=== PATIENT | female | born 1960 ===

== ENCOUNTER 2025-05-02 06:22 | Day surgery (SDC) | payer BC, SELFPAY ==
[2025-05-02 10:30] LABS: Glucose - Point of Care 107 mg/dl (70-99)
== END 2025-05-02 12:46 | disposition home or self-care (01) ==
LOC: GI 06:22
PROVIDERS: ATTENDING PHYSICIAN Internal Medicine Gastroenterology
DX: Z12.11 Encounter for screening for malignant neoplasm of colon (principal); R19.5 Other fecal abnormalities; K57.30 Diverticulosis of large intestine without perforation or abscess without bleeding; K64.9 Unspecified hemorrhoids; D12.0 Benign neoplasm of cecum
CPT/HCPCS: 45385; 82962; 88305